=== PATIENT | female | born 1995 | race Two or more races ===

== ENCOUNTER 2024-11-27 21:18 | Emergency (ER) | payer OTHER ==
[~2024-11-27] VITALS: Ht 154.9 cm; Wt 59.9 kg
[2024-11-27] MEDS ORDERED: TOPROL XL25 M1 (21:37)
[2024-11-27] MEDS ORDERED: NIFEDIPINE20 MG (21:37)
[2024-11-27] MEDS ORDERED: HYDRALAZINE HC100 MG (21:37)
[2024-11-27] MEDS ORDERED: CHILDREN'S ASPI81 MG (21:37)
[2024-11-27 22:22] LABS: HEMATOCRIT 34.3 % (36.0-45.00); HEMOGLOBIN 11.3 g/dL (12.0-15.00); MEAN CELL VOLUME 81.3 fL (80.00-100.00); MEAN CORPUSCULAR HEMOGLOBIN 26.9 pg (27.00-32.0); PLATELET COUNT 326 K/uL (150-450); RED BLOOD COUNT 4.22 M/uL (4.00-6.00); RED CELL DISTRIBUTION WIDTH 16.2 % (11.5-14.5)
[2024-11-27 22:30] LABS: INR 1.16; PARTIAL THROMBOPLASTIN TIME 30.1 SECONDS (22.0-34.0); PROTHROMBIN TIME 12.5 SECONDS (9.0-11.5)
[2024-11-27 22:33] LABS: INFLUENZA A AG NEGATIVE (NEGATIVE)
[2024-11-27 22:48] LABS: ALKALINE PHOSPHATASE 66 U/L (50-136); ALT/SGPT 22 U/L (12-78); ANION GAP 11 (10.0-20.0); AST/SGOT 18 U/L (15-37); BILIRUBIN TOTAL 0.45 mg/dL (0.3-1.2); BLOOD UREA NITROGEN 8 mg/dL (7-18); BUN CREA RATIO 9 (7.0-25.0); CALCIUM 8.7 mg/dL (8.5-10.1); CARBON DIOXIDE 24 mEq/L (21-32); CHLORIDE 107 mmol/L (98-107); CREATININE SERUM 0.91 mg/dL (0.55-1.02); GLOBULINA 3.9 G/DL (2.4-3.5); GLUCOSE FASTING 80 mg/dL (65-100); OSMOLALITY SERUM 275 MOSM/KG (275-295); POTASSIUM 3.03 mEq/L (3.5-5.1); SODIUM 139 mmol/L (136-145); TOTAL PROTEIN 7.9 gm/dL (6.4-8.2)
[2024-11-27 22:49] LABS: HCG QUANTITATIVE < 1 mUI/mL (1-3)
[2024-11-27 22:58] LABS: COVID-19 AG NEGATIVE (NEGATIVE)
[2024-11-27 23:48] LABS: URINE APPEARANCE Clear; URINE BILIRRUBIN Negative (NEGATIVE); URINE BLOOD Negative; URINE COLOR Yellow; URINE GLUCOSE Negative (NEGATIVE); URINE KETONE Negative (NEGATIVE); URINE LEUKOCYTE Negative; URINE NITRATE Negative; URINE PROTEIN Negative (NEGATIVE); URINE UROBILINOGEN 0.2 E.U./dl
[2024-11-28 00:12] LABS: URINE BACTERIA 2.4 uL (0.0-1933); URINE EPITHELIAL CELLS 0.1 uL (0.0-38.8); URINE RBC 1.7 uL (0.0-20.8); URINE WBC 0.4 uL (0.0-23.2)
== END 2024-11-27 23:58 | disposition home or self-care (01) ==
LOC: ER 21:18
PROVIDERS: General Practice
DX: S00.93XA Contusion of unspecified part of head, initial encounter (principal); W10.8XXA Fall (on) (from) other stairs and steps, initial encounter; Y93.89 Activity, other specified; Y92.89 Other specified places as the place of occurrence of the external cause; Y99.9 Unspecified external cause status; I10 Essential (primary) hypertension; Z86.73 Personal history of transient ischemic attack (TIA), and cerebral infarction without residual deficits; Z88.0 Allergy status to penicillin; Z20.822 Contact with and (suspected) exposure to COVID-19